=== PATIENT | male | born 1960 | race Caucasian/White ===

== ENCOUNTER 2020-03-13 01:31 | Outpatient (CLI) | payer BC, SELFPAY ==
[2020-03-14 03:00] LABS: SARS-CoV-2 RNA PCR Negative
== END 2020-03-13 01:32 | disposition home or self-care (01) ==
LOC: ANHCOVIDDT 01:31
PROVIDERS: PCP Nurse Practitioner Family; Visit Provider Internal Medicine Gastroenterology
DX: Z01.812 Encounter for preprocedural laboratory examination (principal); Z11.59 Encounter for screening for other viral diseases
CPT/HCPCS: 87635; C9803; U0003

== ENCOUNTER 2020-03-15 02:21 | Day surgery (SDC) | payer BC, SELFPAY ==
[2020-03-11 13:16] VITALS: BMI 35.8
--- NOTE | 2020-03-15 10:48 | WPDANESEPPF ---
Anes - Initial Pre Proc Eval Procedure: Operation Date: 03/15/20 12:00 Proposed Procedures p Screening Colonoscopy - Krishna Garcia MD Date/Time: 03/15/20 10:48 Surgeon: Krishna Garcia MD Pre Op Diagnosis: Neoplasm Screening Patient Data Age: 59 Gender: M Height: 5 ft 8 in Weight: 106.8 kg Allergies Allergy/AdvReac Type Severity Reaction Status Date / Time amoxicillin Allergy Mild Rash Verified 03/15/20 10:48 Home Medications Medication Instructions Recorded Confirmed Type levothyroxine 75 mcg tablet 75 mcg PO DAILY #60 tablet 01/19/20 03/11/20 Rx cetirizine [Zyrtec] 10 mg PO BID 03/11/20 03/11/20 History gabapentin 300 mg PO DAILY 03/11/20 03/11/20 History Patient hx anesthesia problems: none Family hx anesthesia problems: none PMFSH Family History Family History Father Family history of diabetes mellitus in first degree relative Family history of heart disease in male family member before age 55 Other Cerebrovascular accident Diabetes mellitus Social History Social History Smoking status: Never smoker Second hand tobacco smoke exposure: No Alcohol intake: current Substance use: never Substance use type: does not use Living arrangements: with family Spiritual care concerns: No Anes - Eval Final PreProcedure Day of Procedure 03/15/20 10:48 Patient weight: obese Heart: regular rate and rhythm Lungs: clear to auscultation Airway: Mallampati scale class II Neurological: alert and oriented Last oral intake: >/= 8 hours ASA classification: II Emergent: no Anesthetic plan: proceed Anesthesia type and monitoring: general GIVS and standard monitoring Informed Consent: The patient's anesthetic plan and its attendant risks and benefits were discussed with the patient/family/POA. Questions were solicited and answers provided to the satisfaction of the patient/family/POA.
[2020-03-15 10:49] VITALS: BP 142/87; PULSE 79; RESP 16; TEMP 36.3; O2SAT 98; BMI 35.7
[2020-03-15] MEDS: LACTATED RINGERS 1,000 ML 150 ML IV CONT (11:00)
--- NOTE | 2020-03-15 11:13 | PM.HPGS ---
History of Present Illness History of Present Illness Consent: Risks, benefits, and alternatives have been discussed and questions answered. Patient agrees to proceed with procedure. Chief complaint: Neoplasm Screening Narrative: Frandy Molina is a 59 year old male here for screening colonoscopy, last one 2009 Review of Systems Constitutional: Constitutional: Denies headache(s) and Denies weakness Eyes: Eyes: Denies blurry vision ENT: Reports Normal hearing present, Denies headache(s) and Denies neck pain Cardiovascular: Cardiovascular: Denies chest pain and Denies dyspnea Respiratory: Respiratory: Denies dyspnea Gastrointestinal: Gastrointestinal: Reports no additional gastrointestinal complaints Genitourinary: Genitourinary: Denies dysuria Musculoskeletal: Musculoskeletal: Denies neck pain Integumentary/Breasts: Skin/Breast: Denies dry skin Neurologic: Reports Normal hearing present, Denies headache(s) and Denies weakness Psychiatric: Psychiatric: Denies anxiety Endocrine: Endocrine: Denies change in body appearance Hematologic/Lymphatic: Hematologic/Lymphatic: Denies easy bleeding Allergic/Immunologic: Allergic/Immunologic: Denies urticaria PMF Past Medical History Medical History (Updated 03/15/20 @ 11:14 by Krishna Garcia MD) Colon cancer screening Family History Family History Father Family history of diabetes mellitus in first degree relative Family history of heart disease in male family member before age 55 Other Cerebrovascular accident Diabetes mellitus Social History Social History Smoking status: Never smoker Second hand tobacco smoke exposure: No Alcohol intake: current Substance use: never Substance use type: does not use Living arrangements: with family Spiritual care concerns: No Meds Home Medications and Allergies Home Medications Medication Instructions Recorded Confirmed Type levothyroxine 75 mcg tablet 75 mcg PO DAILY #60 tablet 01/19/20 03/11/20 Rx cetirizine [Zyrtec] 10 mg PO BID 03/11/20 03/11/20 History gabapentin 300 mg PO DAILY 03/11/20 03/11/20 History Allergies Allergy/AdvReac Type Severity Reaction Status Date / Time amoxicillin Allergy Mild Rash Verified 03/15/20 10:48 Vital Signs Vital Signs - 24 hr 03/15/20 10:49 Temperature 97.3 F L Pulse Rate 79 Respiratory Rate 16 Blood Pressure 142/87 H Pulse Oximetry 98 Exam Const: General: comfortable and no acute distress HENMT: General nose exam: Normal nares present Eyes: General: appearance normal, both eyes and all related structures Neck: Neck: no JVD Resp: Auscultation: clear to auscultation bilaterally Cardio: Rate: regular rate Rhythm: regular rhythm GI: Inspection: non-distended GI Palp: Yes Soft to palpation Skin: General skin exam: normal color Neuro: General: gait normal Speech: normal speech Extrem: General: normal to inspection Psych: Mental Status: mental status grossly normal Assessment and Plan Assessment and plan (1) Colon cancer screening: Code(s): Z12.11 - Encounter for screening for malignant neoplasm of colon Status: Acute Assessment and Plan: will proceed with colonoscopy
[2020-03-15 11:37] VITALS: BP 130/83; PULSE 87; RESP 18; O2SAT 98
[2020-03-15 11:47] VITALS: BP 118/79; PULSE 80; RESP 18; O2SAT 98
[2020-03-15 11:57] VITALS: BP 141/80; PULSE 80; RESP 18; O2SAT 98
== END 2020-03-15 12:20 | disposition home or self-care (01) ==
PROVIDERS: PCP Nurse Practitioner Family; Visit Provider Internal Medicine Gastroenterology
PROC: 0DJD8ZZ Inspection of Lower Intestinal Tract, Via Natural or Artificial Opening Endoscopic (ICD-10-PCS; CPT 45378; principal; 2020-03-15 12:00)
DX: Z12.11 Encounter for screening for malignant neoplasm of colon (principal); D12.2 Benign neoplasm of ascending colon
CPT/HCPCS: 45385; 88305; J2704; J7120

== ENCOUNTER → 2020-07-29 11:38 | Outpatient (CLI) | payer BC, SELFPAY ==
--- NOTE | ~2020-07-29 | XR_ITS ---
EXAMINATION: XR hand BI arthritis min 3V EXAM DATE: 07/29/2020 12:01 INDICATION: M25.50 - Pain in unspecified joint. Bilateral hand stiffness x few yrs left hand worse, m ore noticeable at 5th pip joint and 2nd pip joint of left hand no injury TECHNIQUE: Right hand frontal, lateral and oblique projections obtained and reviewed. Left hand fron frida, lateral and oblique projections obtained and reviewed. Catchers projection of both hands. There is no prior study for comparison. FINDINGS: There is mild symmetric bilateral polyarticular interphalangeal joint primary osteoarthriti s. There are no bony erosions identified. There are no acute fractures or dislocations identified. T here is no subcutaneous gas. The soft tissue is unremarkable. There are no radiopaque foreign bodi es. IMPRESSION: Mild bilateral polyarticular interphalangeal osteoarthritis. Reviewed, dictated and finalized at location A.
--- NOTE | ~2020-07-29 | US_ITS ---
EXAMINATION: US thyroid EXAM DATE: 07/29/2020 11:55 INDICATION: R22.1 - Localized swelling, mass and lump, neck . TECHNIQUE: Multiple grayscale and Doppler images of the thyroid were obtained (by a technologist who performed the scan) and subsequently reviewed. Individual nodules and recommendations may be reporte d in accordance with TI-RADS system as designated by the 2017 ACR White Paper TI-RADS committee. The re is no prior study for comparison. FINDINGS: The right thyroid lobe measures 4.9 x 2.3 x 1.4 cm, the left measuring 4.2 x 2.2 x 1.3 cm. There is d iffusely heterogeneous thyroid echogenicity. Expected amount of thyroid vascularity. In the deep aspect right thyroid lobe there is a nodule measuring 6 mm, solid (2 points), very hypoec hoic (more hypoechoic than strap muscle, 3 points), wider than tall, ill-defined margin, without echo genic foci, category TR4 for this nodule. This is not likely clinically significant. IMPRESSION: 1. Enlarged heterogeneous thyroid echogenicity. 2. Small right lobe nodule not likely clinically significant. Return to clinical follow-up and if additional palpable abnormality develops a repeat ultrasound can be obtained. Reviewed, dictated and finalized at location A.
== END ==
PROVIDERS: PCP Family Medicine; Visit Provider Nurse Practitioner Family
DX: R22.1 Localized swelling, mass and lump, neck (principal); M79.641 Pain in right hand; M79.642 Pain in left hand; M19.042 Primary osteoarthritis, left hand; M19.041 Primary osteoarthritis, right hand; E04.9 Nontoxic goiter, unspecified; R91.1 Solitary pulmonary nodule
CPT/HCPCS: 73130; 76536

== ENCOUNTER 2020-10-08 08:06 | Outpatient (CLI) | payer BC, SELFPAY ==
--- NOTE | 2020-10-21 12:38 | WPDHOMESLEEP ---
Sleep Study - Home Unattended Date of Study: 10/08/20 Ordering Provider: Valentina Sunshine MD Interpreting Provider: Radha Hills MD Home Sleep Study Type: Apnea Link Air Height: 1.73 m Weight: 106.594 kg Body Mass Index: 35.7 Neck Circumference (inches): 8 Kidder: 10 Reason for Sleep Study Prior nocturnal polysomnogram 04/20/2010 with snoring, but not obstructive sleep apnea He has hypersomnia, asthma, allergies, witnessed apneas and nonrestorative sleep Sleep History Frandy Mccartney is a 59-year-old male who had a prior nocturnal polysomnogram April 20, 2010 which showed no vern obstructive sleep apnea, AHI was 2 with mild oxygen desaturation with moderate to heavy snoring. His BMI at that time was 34.2. BMI is higher now 35.7, and his says that he snores loudly, kicks at night, and has long pauses in his breathing during sleep, and these are worse when he is in the supine position. This has improved since he had an increase in his thyroid medication. He does not awaken from sleep feeling short of breath or have heartburn, belching or coughing that causes him to wake at night. He frequently snores, and frequently this is loud enough that others complain about it. He frequently has trouble sleep with a cold. He does not wake up gasping for breath at night. He frequently has breathing problems at night noted by his . He does not sweat excessively at night or notice his heart pounding irregularly at night. He rarely falls asleep during the day, never while exerting physical effort. He does not have loss of muscle tone with strong emotion. He does on occasion have daytime difficulties due to excessive sleepiness. He does not feel paralyzed on waking or falling asleep. He rarely has vivid dreamlike scenes upon awakening or falling asleep. He does not feel afraid to go to sleep. He rarely has nightmares. He rarely remembers his dreams. He rarely has racing thoughts. He rarely feels sad, depressed, or anxious. He occasionally has muscular tension. He occasionally notices parts of his body jerking, fingers, various muscles. He rarely kicks at night. He has irritable for crawling feelings in his feet and pain in his feet at night but not in his legs. He does not have morning jaw pain. He does not grind his teeth during sleep. He frequently is bothered by pain during the day including arthritis in his hands and knees. He rarely is awakened by pain at night. He frequently wakes up feeling stiff in the morning. He rarely wakes up with sore or achy muscles. He occasionally wakes up with pain in the neck and spine. He has frequent morning headaches, frequent problems with memory and concentration and occasional sexual function problems. He only occasionally awakens feeling refreshed, and frequently has daytime sleepiness. Normal bedtime is between 11:30 p.m. and 12:30 a.m., taking a 1/2 hour to fall asleep occasionally longer. He wakes up about 3 times at night. He will roll over and go back to sleep. These awakenings last 5 minutes or less. He wakes the morning at 8:00 a.m.. Weekend schedule is the same. He does not take naps. He is drowsy in the morning for an hour. He feels better in the afternoon and evening compared to the morning. Habits: Never smoked tobacco. Caffeine 3-4 cups of coffee or tea daily. Rare alcohol. No recreational drugs. [facility] Past Medical History Medical History (Updated 10/21/20 @ 12:57 by Radha Hills MD) Allergy history unknown Asthma BMI 36.0-36.9,adult Borderline hyperlipidemia Colon cancer screening Colonoscopy planned Fatigue Hypersomnia Hypothyroidism Neuropathy of both feet Family History Family History (Updated 08/07/20 @ 09:40 by Jose Roberto Chambers) Father Family history of diabetes mellitus in first degree relative Family history of heart disease in male family member before age 55 Tobacco abuse Pancreatic cancer Mother Heart disease
[2020-10-21 12:42] VITALS: BMI 35.7
== END 2020-10-09 10:04 | disposition home or self-care (01) ==
PROVIDERS: PCP Family Medicine; Visit Provider Internal Medicine Endocrinology, Diabetes & Metabolism
DX: G47.10 Hypersomnia, unspecified (principal); R53.83 Other fatigue
CPT/HCPCS: 95806

== ENCOUNTER 2020-12-02 16:01 | Outpatient (CLI) | payer BC, SELFPAY ==
[2020-12-02 18:21] LABS: Free T4 Free Thyroxine 1.39 ng/mL (0.78-2.19)
== END 2020-12-02 16:02 | disposition home or self-care (01) ==
LOC: ANHLAB 16:03
PROVIDERS: PCP Family Medicine; Visit Provider Internal Medicine Endocrinology, Diabetes & Metabolism
DX: E03.9 Hypothyroidism, unspecified (principal); G47.33 Obstructive sleep apnea (adult) (pediatric); R73.03 Prediabetes
CPT/HCPCS: 36415; 82728; 84439; 84443

== ENCOUNTER 2021-01-17 13:40 | Outpatient (CLI) | payer BC, SELFPAY ==
--- NOTE | ~2021-01-17 | XR_ITS ---
EXAMINATION: XR chest 2V DATE: 01/17/2021 13:52 INDICATION: Midsternal chest pain TECHNIQUE: PA and lateral views of the chest are obtained. COMPARISON: None available FINDINGS: The lungs are free of acute opacities. There is no pleural effusion or pneumothorax. The ca rdiomediastinal silhouette is normal. There is moderate thoracic spondylosis. IMPRESSION: 1. No acute cardiopulmonary abnormality. Reviewed, dictated and finalized at location B.
--- NOTE | 2021-01-17 13:47 | ECG_ITS ---
Measurements Intervals [place] Rate: 71 P: 19 RI: 175 QRS: 4 QRSD: 98 T: 17 QT: 380 QTc: 415 Interpretive Statements SINUS RHYTHM INCOMPLETE RIGHT BUNDLE BRANCH BLOCK BORDERLINE T WAVE ABNORMALITY- INFERIOR LEADS BORDERLINE ECG Electronically Signed On 01-17-2021 19:03:12 CDT by Yanick Galvan D.O.
== END 2021-01-17 13:41 | disposition home or self-care (01) ==
LOC: ANHIMG 13:42
PROVIDERS: PCP Family Medicine; Visit Provider Nurse Practitioner Family
DX: R07.89 Other chest pain (principal)
CPT/HCPCS: 71046; 93005

== ENCOUNTER 2021-06-05 15:02 | Outpatient (CLI) | payer BC, SELFPAY ==
[2021-06-05 16:48] LABS: Hemoglobin A1C 5.9 % (<5.7)
[2021-06-05 16:54] LABS: Free T4 Free Thyroxine 1.16 ng/mL (0.78-2.19)
== END 2021-06-05 15:03 | disposition home or self-care (01) ==
LOC: ANHWCLAB 15:04
PROVIDERS: PCP Family Medicine; Visit Provider Internal Medicine Endocrinology, Diabetes & Metabolism
DX: E03.9 Hypothyroidism, unspecified (principal); E04.1 Nontoxic single thyroid nodule; R73.03 Prediabetes
CPT/HCPCS: 36415; 83036; 84439; 84443

== ENCOUNTER 2023-08-30 09:36 | Emergency (ER) | payer OTHER, SELFPAY ==
[2023-08-30 09:42] VITALS: BP 121/78; PULSE 83; RESP 16; TEMP 36.9; O2SAT 97
--- NOTE | 2023-08-30 10:00 | ED.URI ---
HPI - URI/Sore Throat General Chief Complaint: Upper Respiratory Infection Stated Complaint: Cough,Fever, Bodyache Time Seen by Provider: 08/30/23 09:53 Source: patient, family () and RN notes reviewed Mode of arrival: ambulatory Limitations: no limitations History of Present Illness HPI Narrative: Patient presents today with a 3 day history of body aches, headache, congestion, cough, fever up to 100. States symptoms started after working outside. History of allergies. Also has history of asthma as a child, but has not had any difficulties as an adult. Denies any current shortness of breath, but states he may have had some very mild wheezing intermittently. He has tried Zyrtec, Flonase, Afrin, Tylenol, Sudafed, Mucinex, Chloraseptic spray, and NyQuil with some intermittent relief. Related Data Home Medications Medication Instructions Recorded Confirmed cetirizine 10 mg capsule (Zyrtec) 10 mg PO BID 03/11/20 08/30/23 fluticasone propionate 50 1 spray intranasal DAILY 06/05/21 08/30/23 mcg/actuation nasal spray,suspension (Flonase Allergy Relief) olopatadine 0.2 % eye drops 1 drp EACH EYE DAILY 06/05/21 08/30/23 (Pataday Once Daily Relief) [id number] 12/11/21 08/30/23 gabapentin 600 mg tablet 600 mg PO BID 06/15/22 08/30/23 Allergies Allergy/AdvReac Type Severity Reaction Status Date / Time amoxicillin Allergy Mild Rash Verified 08/30/23 09:44 Review of Systems Review of Systems: CONSTITUTIONAL: + body aches, fever EYES: Denies visual changes, redness, or discharge. ENT: Denies rhinorrhea, sore throat, or otalgia.+ congestion CARDIOVASCULAR: Denies chest pain, palpitations, or edema. RESPIRATORY: Denies dyspnea.+ cough, wheezing GASTROINTESTINAL: Denies abdominal pain, nausea, vomiting, or diarrhea. GENITOURINARY: Denies dysuria or hematuria. SKIN: Denies rash, itching, or wounds. MUSCULOSKELETAL: Denies back pain, joint pain, or myalgia. NEUROLOGIC: Denies numbness, tingling, or weakness.+ headache PSYCH: Denies depression or anxiety. [facility] Past Medical History Medical History Allergy history unknown Arthralgia Asthma BMI 36.0-36.9,adult BMI greater than 30 Borderline hyperlipidemia Colonoscopy planned Fatigue Hypersomnia Hypothyroidism Intermittent left-sided chest pain Neuropathy of both feet Obstructive sleep apnea Pain in both hands Prediabetes Spermatocele surgery to remove fluid Testicular mass Thyroid nodule Surgical History Surgical History History of shoulder surgery left shoulder Family History Family History Father Family history of diabetes mellitus in first degree relative Family history of heart disease in male family member before age 55 Tobacco abuse Pancreatic cancer Mother Heart disease Rheumatic fever Tobacco abuse Heart valve replaced Sibling Tobacco abuse Alcohol abuse Substance abuse Thyroid disease Other Cerebrovascular accident Diabetes mellitus Social History Social History Smoking status: Never smoker Second hand tobacco smoke exposure: Yes Alcohol intake: current Substance use: never Substance use type: does not use Lack of Transportation: No Lack of Food: Never True Current Housing: I Have Housing Concerned About Future Housing: No Difficulty Paying Gas/Electric Bills: No Difficulty Paying for Meds: No Currently Unemployed: No Education: Bachelor's Degree Difficulty w/ Childcare or Family Care: No Living arrangements: with family Occupation/Education: retired 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 Gender identity (if verbalized by the patient): Male Spiritual care concerns: No
== END 2023-08-30 10:09 | disposition home or self-care (01) ==
PROVIDERS: Emergency Provider Nurse Practitioner; PCP Family Medicine
DX: J10.1 Influenza due to other identified influenza virus with other respiratory manifestations (principal); J45.909 Unspecified asthma, uncomplicated; E03.9 Hypothyroidism, unspecified; R73.03 Prediabetes
CPT/HCPCS: 87804; 99213; G0463

== ENCOUNTER 2024-09-28 13:45 | Outpatient (CLI) | payer MEDICARE, OTHER, SELFPAY ==
--- NOTE | ~2024-09-28 | XR_ITS ---
XR hand LT min 3V Ordering provider: LAURA Hill History: . S69.90XA - Unspecified injury of unspecified wrist, hand ... . Comparison: None. FINDINGS: BONES: No acute fracture or dislocation. JOINT SPACES: Osteoarthritic changes of the first interphalangeal joint. SOFT TISSUES: Unremarkable. IMPRESSION: No acute osseous abnormality left hand. Osteoarthritic changes of the first interphalangeal joint. Reviewed, dictated and finalized at location A.
== END 2024-09-28 13:46 | disposition home or self-care (01) ==
LOC: MICIMG 13:48
PROVIDERS: PCP Family Medicine; Visit Provider Nurse Practitioner Family
DX: M19.042 Primary osteoarthritis, left hand (principal)
CPT/HCPCS: 73130